=== PATIENT | male | born 1980 | race Caucasian/White ===

== ENCOUNTER 2016-10-10 13:16 | Outpatient (CLI) | payer OTHER ==
[2016-10-10] MEDS ORDERED: IOTHALAMATE MEGLUMINE 50 ML VIAL IVP ONE (14:33)
[2016-10-10] MEDS ORDERED: GADOPENTETATE DIMEGLUMINE 5 ML VIAL IVP ONE (14:33)
[2016-10-10] MEDS ORDERED: BUFFERED LIDOCAINE 10 ML SYRINGE IU ONE (14:33)
== END 2016-10-10 13:17 | disposition home or self-care (01) ==
DX: S73.191A Other sprain of right hip, initial encounter (principal)
CPT/HCPCS: 20610; 73722; 77002; Q9961

== ENCOUNTER 2024-06-08 13:31 | Outpatient (CLI) | payer OTHER ==
--- NOTE | 2024-06-08 14:27 | Sleep Patient Instructions ---
Sleep Center Visit Summary - Patient Visit Information Reason for Visit: Initial consult for evaluation of sleep disordered breathing and other sleep issues. - Patient Instructions Instructions Attached: Sleep Study Additional Instructions: You will be completing a sleep study, either an in-lab polysomnography (PSG) or home sleep study (HST). You will follow-up in the sleep care office after the sleep study is completed to hear the results and talk about therapy, if needed. You will be called by our office staff to schedule this appointment, but you may contact us with any questions. - Clinic Information Contact: [facility] [address] [place] [address] [email or web address] T: [phone]
--- NOTE | 2024-06-08 14:29 | SLEEP CARE CONSULTATION ---
Information from patient questionnaire entered by Carina Appiah. I have reviewed and concur with the information entered by Carina Appiah. This document represents the service I personally performed and the decisions made by me, Bebe Mattson ARNP. History of Present Illness Service Date and Time: 06/08/2024 1331 Reason for Visit: New patient Chief Complaint: reports: Insomnia, Unrefreshed sleep, Snoring, Excessive daytime sleepiness, Observed pauses in breathing, Fatigue, Frequent awakenings at night Date of Onset: 6+YRS Usual bedtime: 8366-7826 Time it takes to fall asleep: 1-2HRS Snores at night: Yes Observed to quit breathing while asleep: Yes Sleeps alone due to snoring: Yes Number of times waking at night: 1-2 Reasons for waking at night: reports: Pain, Bathroom, Other (NOISE) Toss, Turn, or Twitch while sleeping: Yes Recalls having dreams: No Usually gets out of bed at: 7801-4552 Feels refreshed in the morning: No Morning headache: Yes ([id number]) Sleepy or fatigued during the day: Yes Ever fallen asleep while driving: Yes Takes day naps: No Dreams during day naps: Yes Prior sleep studies: No Additional HPI information: I had the pleasure of seeing ANTONY LANE today regarding the possibility of him having a sleep disorder. His current complaints are excessive daytime sleepiness, fatigue, frequent night awakenings, insomnia, observed pauses in breathing, snoring and unrefreshed sleep. He says his complains of his snoring. He feels a lack of quality sleep. He feels it is getting worse over time. There are times when his will sleep separately due to the snoring or wake him to turn onto his side. He can average 1 hour to fall asleep. He will wake up a few times after falling asleep. He mostly wakes up for the bathroom, snoring or noise. Sometimes he can not go back to sleep after waking up because his mind will not shut off. He says there is not difference in his restfulness with how many hours he is able to get to sleep. He will wake up with a headache a few times a week that resolves after food and coffee. He says about 1 time a week he will take medication to reduce headache. He has drowsy driving occasionally but no accidents. He has kicked in his sleep, "muscle spasms", that is related to dreams. - Parasomnia Symptoms Ever been unable to move upon waking from sleep: No Walks in sleep: No Talks in sleep: Yes Ever acted out dreams in sleep: Yes Ever felt weak in the knees when startled or emotional: Yes Bothered by creepy, crawly, restless sensations in legs: Yes Problems with memory or concentration: Yes (hard time focus, associated with sleepiness; memory getting worse) Subjective Initial [place] Sleepiness Scale score: 13 (06/08/24) Past Medical History Past Medical History: reports: Other (no significant medical history) Social History The patient's occupation is a AM. Patient is and lives in . Have you smoked in the past 12 months: No Alcohol use: Yes Alcohol amount and frequency: 1-2 1-2 TIMES A WEEK WEEKEND MOSTLY Caffeine use: Yes Caffeine amount and frequency: 1-3 CUPS OF COFFEE DAILY Family History Family history of sleep disordered breathing: Yes Family Hx Sleep Apnea: Father: Snoring Allergies and Home Medications Known drug allergies: No Drug allergies reviewed: Yes Home medication list reviewed: Yes Allergy and home medication list: Allergies No Known Drug Allergies Allergy (Verified 06/08/24 13:53) Home Medications No Known Home Medications 06/08/24 [History] Review of Systems Cardiovascular: denies: high blood pressure Gastrointestinal: denies: heartburn Neurological: denies: headaches Psychiatric: reports: anxiety Ear/Nose/Throat: reports: injury to nose (slight deviated septum). denies: tonsillectomy Musculoskeletal: reports: joint pain, neck pain, back pain Immunologic: reports: sneezing, allergies to food or environment Physical Exam Vital signs obtained and entered by: CARINA White MA Blood Pressure: 149/85 (LEFT ARM) Cuff size: regular Heart Rate: 60 O2 Saturation: 98 Height: 6 ft 2 in Weight: 240 lb Body Mass Index: 30.8 BMI Classification: Obese Neck circumference: 17 Mouth and throat: narrow oropharynx Soft palate: normal Hard palate: normal Uvula: normal Uvula visualization: 50% Mallampati Class II Tongue: enlarged in size with teeth rodriguez on lateral edges Tonsils: small Neck: normal w/o lymphadenopathy or thyromegaly Heart: regular rate and rhythm Lungs: clear bilaterally Impression and Plan 1. Suspected Obstructive Sleep Apnea-Hypopnea Syndrome, as suggested by a history of loud and irregular snoring, observed cessation of breath while asleep, morning headache, frequent awakening during the night, unrefreshed sleep, cognitive impairment, and excessive daytime sleepiness. Narrow oropharynx and obesity are common predisposing factors for obstructive sleep apnea- hypopnea syndrome. I recommend proceeding to polysomnography to confirm the diagnosis and to assess severity. If the patient has significant sleep disordered breathing, a manual CPAP titration study will also be performed to find the optimal treatment pressure. I informed the patient of what the sleep studies involve and after some discussion, obtained agreement to proceed. The pathophysiology of obstructive sleep apnea-hypopnea syndrome was discussed with the patient and health risks of cardiovascular and cerebrovascular disease if not treated. Risks of drowsy driving discussed in detail and patient advised to avoid long distance driving and to pullman conductor at the first sign of drowsiness. Patient agreed to plan. * Schedule polysomnography * Avoid long distance driving or driving when feeling sleepy. * Avoid alcohol, sedative and muscle relaxant around bedtime. * Attempt to lose weight. * Review instructions provided by trained office staff on how to prepare for the sleep study. * Return for follow-up after sleep study completed. Counseling Topics: Weight loss health impact Plan: sleep study and follow up Visit Type: In Office Time Spent with Patient (minutes): 30 Provider Statement: I spent 100% of the Face to Face Visit with the patient with greater than 50% spent counseling the patient and coordination of care.
[2024-06-08 14:34] VITALS: BP 149/85; O2SAT 98
== END 2024-06-08 13:32 | disposition home or self-care (01) ==
LOC: SC 13:31
PROVIDERS: ATTEND Nurse Practitioner Family
DX: R06.83 Snoring (principal); R06.81 Apnea, not elsewhere classified; R51.9 Headache, unspecified; G47.8 Other sleep disorders; R41.89 Other symptoms and signs involving cognitive functions and awareness; G47.10 Hypersomnia, unspecified; E66.9 Obesity, unspecified; Z68.30 Body mass index [BMI] 30.0-30.9, adult
CPT/HCPCS: 99203; 99212